=== PATIENT | female | born 2000 | race Caucasian/White ===

== ENCOUNTER 2023-11-08 15:28 | Outpatient (CLI) | payer BC, SELFPAY ==
[2023-11-08 16:51] LABS: HCG Quantitative 3.47 mIU/mL
== END 2023-11-08 15:29 | disposition home or self-care (01) ==
PROVIDERS: Family Provider Nurse Practitioner Family; PCP Nurse Practitioner Family; Visit Provider Obstetrics & Gynecology
DX: O03.4 Incomplete spontaneous abortion without complication (principal)
CPT/HCPCS: 36415; 84702